=== PATIENT | female | born 1975 | race Caucasian/White ===

== ENCOUNTER 2018-06-09 17:58 | Emergency (ER) | payer BC, SELFPAY | END 2018-06-09 19:34 | disposition home or self-care (01) | LOC: MADERS 17:58 | DX: J06.9 Acute upper respiratory infection, unspecified (principal); H66.91 Otitis media, unspecified, right ear; I10 Essential (primary) hypertension; F17.210 Nicotine dependence, cigarettes, uncomplicated; Z79.899 Other long term (current) drug therapy | CPT/HCPCS: 99283 ==

== ENCOUNTER 2018-06-09 20:19 | Emergency (ER) | payer BC | END 2018-06-09 20:50 | disposition home or self-care (01) | LOC: MADERS 20:19 | DX: R00.0 Tachycardia, unspecified (principal); I10 Essential (primary) hypertension; F17.210 Nicotine dependence, cigarettes, uncomplicated; Z79.899 Other long term (current) drug therapy; Z79.891 Long term (current) use of opiate analgesic | CPT/HCPCS: 99281 ==

== ENCOUNTER 2022-02-24 14:35 | Outpatient (CLI) | payer BC | END 2022-02-24 14:36 | disposition home or self-care (01) | LOC: MADRAD 14:35 | PROVIDERS: ATTEND Registered Nurse | DX: M25.521 Pain in right elbow (principal) ==